=== PATIENT | female | born 1985 | race Caucasian/White ===

== ENCOUNTER 2021-11-16 20:53 | Emergency (ER) | payer BC ==
[2021-11-17 02:49] LABS: HEMOGLOBIN 15.6 gm/dl (12.3-15.3); RED BLOOD COUNT 5.34 M/UL (4.00-5.10); WHITE BLOOD COUNT 7.6 K/UL (4.5-11.0)
[2021-11-17 03:23] LABS: BUN/CREATININE RATIO 23 (0-10)
[2021-11-17] MEDS ORDERED: DOXYCYCLINE HY100 M2 PO (06:03)
== END 2021-11-17 06:23 | disposition home or self-care (01) ==
LOC: ER1 20:53
PROVIDERS: Physician Assistant
DX: U07.1 COVID-19 (principal); J12.82 Pneumonia due to coronavirus disease 2019; I10 Essential (primary) hypertension; J45.909 Unspecified asthma, uncomplicated; Z88.2 Allergy status to sulfonamides; Z79.899 Other long term (current) drug therapy
CPT/HCPCS: 36600; 71045; 80053; 81001; 82550; 82553; 82803; 83605; 83874; 84484; 84703; 85025; 85379; 87040; 87081; 87880; 93005; 94664; 94760; 99284; Q9967

== ENCOUNTER → 2021-11-28 | Outpatient (CLI) | payer OTHER ==
[~2021-11-28] MED LIST: DOXYCYCLINE HY100 M2 PO
== END ==
LOC: KOH-I 13:45
DX: U07.1 COVID-19 (principal)
CPT/HCPCS: 71046

== ENCOUNTER 2021-12-06 17:36 | Emergency (ER) | payer OTHER ==
[2021-12-06 18:22] LABS: RED BLOOD COUNT 4.87 M/UL (4.00-5.10)
[2021-12-06 18:46] LABS: BUN/CREATININE RATIO 32 (0-10)
== END 2021-12-07 02:40 | disposition home or self-care (01) ==
LOC: ER1 17:36
PROVIDERS: Physician Assistant
DX: U07.1 COVID-19 (principal); J12.82 Pneumonia due to coronavirus disease 2019; E11.65 Type 2 diabetes mellitus with hyperglycemia; E86.0 Dehydration; I10 Essential (primary) hypertension; Z88.2 Allergy status to sulfonamides
CPT/HCPCS: 80053; 82962; 83036; 83605; 84703; 85025; 87040; 94664; 94760; 96374; 99285; Q9967

== ENCOUNTER → 2021-12-06 | Outpatient (CLI) | payer OTHER | LOC: LAB 16:39 | DX: U07.1 COVID-19 (principal) | CPT/HCPCS: 36415; 85379 ==